=== PATIENT | female | born 1995 | race Caucasian/White ===

== ENCOUNTER 2018-10-30 18:39 | Emergency (ER) | payer BC ==
[~2018-10-30] VITALS: Ht 170.2 cm; Wt 54.5 kg
[2018-10-30] MEDS ORDERED: TAMIFLU 75MG75 MG PO (18:59)
[2018-10-30] MEDS ORDERED: TYLENOL 500MG500 MG PO (19:11)
[2018-10-30 21:04] VITALS: BP 107/64; PULSE 90; TEMP 98.5
== END 2018-10-30 21:04 | disposition home or self-care (01) ==
LOC: COL.ER 18:39
DX: J11.1 Influenza due to unidentified influenza virus with other respiratory manifestations (principal)
CPT/HCPCS: J7030